=== PATIENT | female | born 1935 | race Caucasian/White ===

== ENCOUNTER 2022-02-06 08:53 | Inpatient (IN) | payer OTHER ==
[2022-02-06 09:48] LABS: #Monocytes 0.5 10x3/uL (0.0-1.1); #Neutrophils 8.6 10x3/uL (1.5-8.4); %Basophils 0.3 % (0.0-2.0); %Eosinophils 0.1 % (0.0-6.0); %Lymphocytes 6.4 % (18.0-47.0); %Monocytes 4.8 % (0.0-10.0); Hemoglobin 11.1 g/dL (12.0-15.5); Mean Corpuscular HGB CONC 32.6 g/dL (32.0-36.0); Mean Corpuscular Hemoglobin 29.1 pg (27.0-33.0); Mean Corpuscular Volume 89.2 fl (81.6-98.3); Mean Platelet Volume 11.1 fl (7.4-10.4); Platelet Count 266 10x3/uL (150-450); RBC Distribution Width 14.9 % (11.5-14.5); Red Blood Cell (RBC) Count 3.81 10x6/uL (3.90-5.03); White Blood Cell (WBC) Count 9.8 10x3/uL (3.5-10.5)
[2022-02-06] MEDS ORDERED: Aspirin Chewable 81 MG TAB ONE (09:59)
[2022-02-06] MEDS ORDERED: Morphine 4 MG/ML VIAL ONE (10:00)
[2022-02-06 10:01] LABS: PTT 23.2 sec (22.0-33.0); Prothrombin Time 10.5 sec (9.5-12.1)
[2022-02-06] MEDS ORDERED: Ondansetron PF 4 MG/2 ML Vial ONE (10:01)
[2022-02-06 10:05] LABS: ALT (SGPT) 169 U/L (8-55); AST (SGOT) 226 U/L (5-34); Albumin 4.1 g/dL (3.4-4.8); Alkaline Phosphatase 292 U/L (40-110); Anion Gap 17 mmol/L (10-20); BUN (Urea Nitrogen) 27 mg/dL (9.8-20.1); Bilirubin, Total 2.3 mg/dL (0.2-1.2); Calc. Creatinine Clearance 0 mL/min (70-130); Calcium 9.6 mg/dL (7.8-10.44); Carbon Dioxide 22 mmol/L (23-31); Chloride 103 mmol/L (98-107); Estimated GFR 33; Globulin 3.1 g/dL (2.4-3.5); Glucose 122 mg/dL (83-110); Lipase 14 U/L (8-78); Potassium 4.5 mmol/L (3.5-5.1); Protein, Total 7.2 g/dL (5.8-8.1); Sodium 137 mmol/L (136-145)
[2022-02-06 12:49] LABS: Troponin I Less than 0.010 ng/mL (< 0.028)
[2022-02-06] MEDS ORDERED: Ondansetron ODT 4 MG TAB PO PRN (13:33)
[2022-02-06] MEDS ORDERED: Morphine 2 MG/ML VIAL SLOW IVP PRN (13:35)
[2022-02-06] MEDS ORDERED: Morphine 4 MG/ML VIAL SLOW IVP PRN (13:38)
[2022-02-06] MEDS: Sodium Chloride 0.9% 1,000 ML IV SCH (15:12)
[2022-02-06] MEDS: Ondansetron PF 4 MG/2 ML Vial IVP PRN (15:25)
[2022-02-06 15:38] VITALS: BMI 31.6
[2022-02-06] MEDS ORDERED: Piperacillin/Tazobactam 3.375 GM in Sodium Chloride 0.9% 100 ML IVPB SCH (16:00)
[2022-02-06] MEDS ORDERED: Indomethacin 50 MG SUPP PR SCH (19:30)
[2022-02-06 19:42] LABS: Troponin I Less than 0.010 ng/mL (< 0.028)
[2022-02-06] MEDS: Piperacillin/Tazobactam 3.375 GM in Sodium Chloride 0.9% 100 ML IVPB SCH (20:31)
[2022-02-06] MEDS ORDERED: Enoxaparin Sodium 80 MG/0.8 ML SYRINGE SC SCH ×2 (21:00)
[2022-02-07] MEDS: Sodium Chloride 0.9% 1,000 ML IV SCH ×2 (03:52→18:19)
[2022-02-07] MEDS: Piperacillin/Tazobactam 3.375 GM in Sodium Chloride 0.9% 100 ML IVPB SCH ×3 (03:58→21:41)
[2022-02-07 06:16] LABS: #Monocytes 1.1 10x3/uL (0.0-1.1); #Neutrophils 12.3 10x3/uL (1.5-8.4); %Basophils 0.1 % (0.0-2.0); %Eosinophils 0.1 % (0.0-6.0); %Monocytes 7.7 % (0.0-10.0); %Neutrophils 82.8 % (40.0-75.0); Hemoglobin 10.1 g/dL (12.0-15.5); Mean Corpuscular Hemoglobin 29.4 pg (27.0-33.0); Mean Corpuscular Volume 89.2 fl (81.6-98.3); Mean Platelet Volume 11.6 fl (7.4-10.4); Platelet Count 246 10x3/uL (150-450); RBC Distribution Width 15.4 % (11.5-14.5); Red Blood Cell (RBC) Count 3.43 10x6/uL (3.90-5.03); White Blood Cell (WBC) Count 14.8 10x3/uL (3.5-10.5)
[2022-02-07 06:43] LABS: ALT (SGPT) 165 U/L (8-55); AST (SGOT) 172 U/L (5-34); Albumin 3.3 g/dL (3.4-4.8); Alkaline Phosphatase 245 U/L (40-110); Anion Gap 15 mmol/L (10-20); BUN (Urea Nitrogen) 26 mg/dL (9.8-20.1); Bilirubin, Total 5.9 mg/dL (0.2-1.2); Calc. Creatinine Clearance 32 mL/min (70-130); Calcium 8.9 mg/dL (7.8-10.44); Carbon Dioxide 22 mmol/L (23-31); Chloride 106 mmol/L (98-107); Estimated GFR 31; Glucose 99 mg/dL (83-110); Potassium 4.4 mmol/L (3.5-5.1); Protein, Total 6.3 g/dL (5.8-8.1); Sodium 139 mmol/L (136-145)
[2022-02-07] MEDS ORDERED: Iopamidol 15 ML ONE (15:16)
[2022-02-07] MEDS ORDERED: Indomethacin 50 MG SUPP ONE (15:17)
[2022-02-07] MEDS ORDERED: SUGAMMADEX SODIUM 200 MG/2 ML VIAL ONE (15:39)
[2022-02-07] MEDS ORDERED: Dexamethasone 4 mg/ml Vial ONE (16:38)
[2022-02-07] MEDS ORDERED: Ondansetron PF 4 MG/2 ML Vial ONE (16:38)
[2022-02-07] MEDS ORDERED: Fentanyl 100 MCG/2 ML VIAL ONE (17:06)
[2022-02-08] MEDS: Piperacillin/Tazobactam 3.375 GM in Sodium Chloride 0.9% 100 ML IVPB SCH ×3 (04:07→21:06)
[2022-02-08] MEDS: Sodium Chloride 0.9% 1,000 ML IV SCH ×2 (05:45→23:09)
[2022-02-08 05:52] LABS: Hemoglobin 9.8 g/dL (12.0-15.5); Mean Corpuscular HGB CONC 32.9 g/dL (32.0-36.0); Mean Corpuscular Hemoglobin 29.1 pg (27.0-33.0); Mean Corpuscular Volume 88.4 fl (81.6-98.3); Mean Platelet Volume 11.1 fl (7.4-10.4); Platelet Count 199 10x3/uL (150-450); RBC Distribution Width 15.3 % (11.5-14.5); Red Blood Cell (RBC) Count 3.37 10x6/uL (3.90-5.03); White Blood Cell (WBC) Count 8.6 10x3/uL (3.5-10.5)
[2022-02-08 06:04] LABS: ALT (SGPT) 106 U/L (8-55); AST (SGOT) 61 U/L (5-34); Albumin 2.9 g/dL (3.4-4.8); Alkaline Phosphatase 202 U/L (40-110); Anion Gap 14 mmol/L (10-20); BUN (Urea Nitrogen) 24 mg/dL (9.8-20.1); Bilirubin, Total 2.2 mg/dL (0.2-1.2); Calc. Creatinine Clearance 41 mL/min (70-130); Calcium 8.5 mg/dL (7.8-10.44); Carbon Dioxide 21 mmol/L (23-31); Chloride 109 mmol/L (98-107); Estimated GFR 41; Globulin 2.4 g/dL (2.4-3.5); Glucose 125 mg/dL (83-110); Potassium 4.4 mmol/L (3.5-5.1); Protein, Total 5.3 g/dL (5.8-8.1); Sodium 140 mmol/L (136-145)
[2022-02-08 06:26] LABS: Platelet Morphology Comment Appears Adequate
[2022-02-08 06:32] LABS: Band 1 % (5-11); Lymphocytes 7 % (21-51); Monocytes 2 % (0-10)
[2022-02-08 06:33] LABS: MDiff Complete? YES; Neutrophil 90 % (42-75)
[2022-02-08 06:34] LABS: Anisocytosis SLIGHT = 6-15 cells (100X) (0-5/hpf); Hypochromia SLIGHT = 6-15 cells (100X) (0-5/hpf)
[2022-02-08] MEDS ORDERED: Iopamidol 15 ML ONE (09:09)
[2022-02-08] MEDS ORDERED: Bupivacaine PF 0.5% 30 ML VIAL ONE (09:09)
[2022-02-08] MEDS ORDERED: EPINEPHrine 1 MG/ML AMP ONE (09:09)
[2022-02-08] MEDS ORDERED: Fentanyl 100 MCG/2 ML VIAL ONE (09:20)
[2022-02-08] MEDS ORDERED: Rocuronium Bromide 10 MG/ML (10ML VIAL) ONE (09:20)
[2022-02-08] MEDS ORDERED: Ondansetron PF 4 MG/2 ML Vial ONE ×2 (09:20→11:13)
[2022-02-08] MEDS ORDERED: Dexamethasone 4 mg/ml Vial ONE (09:20)
[2022-02-08] MEDS ORDERED: PROPOFOL 20 ML ONE (09:20)
[2022-02-08] MEDS ORDERED: Esmolol 100 MG/10 ML VIAL ONE (10:24)
[2022-02-08] MEDS ORDERED: Labetalol HCl 100 MG/20 ML VIAL ONE (10:26)
[2022-02-08] MEDS ORDERED: SUGAMMADEX SODIUM 200 MG/2 ML VIAL ONE (10:27)
[2022-02-08] MEDS ORDERED: HYDROmorphone 0.5 MG/0.5 ML SYRINGE ONE (10:28)
[2022-02-08] MEDS ORDERED: Promethazine HCl 25 MG/ML VIAL ONE (11:52)
[2022-02-08] MEDS: HYDROcodone/Acetaminophen 5/325 mg Tablet PO PRN ×2 (12:52→17:58)
[2022-02-09] MEDS: HYDROcodone/Acetaminophen 5/325 mg Tablet PO PRN ×2 (00:50→13:48)
[2022-02-09] MEDS: Piperacillin/Tazobactam 3.375 GM in Sodium Chloride 0.9% 100 ML IVPB SCH ×3 (03:56→21:07)
[2022-02-09 05:13] LABS: #Monocytes 0.6 10x3/uL (0.0-1.1); #Neutrophils 10.4 10x3/uL (1.5-8.4); %Basophils 0.1 % (0.0-2.0); %Lymphocytes 7.4 % (18.0-47.0); %Neutrophils 86.8 % (40.0-75.0); Hemoglobin 9.7 g/dL (12.0-15.5); Mean Corpuscular HGB CONC 32.8 g/dL (32.0-36.0); Mean Corpuscular Hemoglobin 29.2 pg (27.0-33.0); Mean Corpuscular Volume 89.2 fl (81.6-98.3); Mean Platelet Volume 11.4 fl (7.4-10.4); Platelet Count 234 10x3/uL (150-450); RBC Distribution Width 15.6 % (11.5-14.5); Red Blood Cell (RBC) Count 3.32 10x6/uL (3.90-5.03)
[2022-02-09 05:32] LABS: ALT (SGPT) 76 U/L (8-55); AST (SGOT) 37 U/L (5-34); Alkaline Phosphatase 174 U/L (40-110); Anion Gap 12 mmol/L (10-20); BUN (Urea Nitrogen) 29 mg/dL (9.8-20.1); Bilirubin, Total 1.1 mg/dL (0.2-1.2); Calc. Creatinine Clearance 39 mL/min (70-130); Calcium 8.7 mg/dL (7.8-10.44); Carbon Dioxide 21 mmol/L (23-31); Chloride 111 mmol/L (98-107); Estimated GFR 40; Globulin 2.9 g/dL (2.4-3.5); Glucose 119 mg/dL (83-110); Potassium 4.4 mmol/L (3.5-5.1); Protein, Total 5.9 g/dL (5.8-8.1); Sodium 140 mmol/L (136-145)
[2022-02-09] MEDS: Sodium Chloride 0.9% 1,000 ML IV SCH ×2 (08:48→18:45)
[2022-02-09] MEDS: Acetaminophen 325 MG TAB PO PRN (21:08)
[2022-02-10] MEDS ORDERED: Amlodipine 5 MG TAB PO SCH ×2 (02:00→05:30)
[2022-02-10] MEDS ORDERED: Nitroglycerin 2% Ointment 1 INCH/1 GM Packet TOP SCH (02:00)
[2022-02-10] MEDS: Piperacillin/Tazobactam 3.375 GM in Sodium Chloride 0.9% 100 ML IVPB SCH ×3 (04:35→20:25)
[2022-02-10 04:49] LABS: #Monocytes 0.8 10x3/uL (0.0-1.1); #Neutrophils 5.7 10x3/uL (1.5-8.4); %Basophils 0.1 % (0.0-2.0); %Eosinophils 0.2 % (0.0-6.0); %Lymphocytes 20.3 % (18.0-47.0); %Monocytes 9.1 % (0.0-10.0); %Neutrophils 69.8 % (40.0-75.0); Hemoglobin 9.6 g/dL (12.0-15.5); Mean Corpuscular HGB CONC 33.2 g/dL (32.0-36.0); Mean Corpuscular Hemoglobin 29.7 pg (27.0-33.0); Mean Corpuscular Volume 89.5 fl (81.6-98.3); Mean Platelet Volume 10.5 fl (7.4-10.4); Platelet Count 250 10x3/uL (150-450); RBC Distribution Width 15.9 % (11.5-14.5); Red Blood Cell (RBC) Count 3.23 10x6/uL (3.90-5.03); White Blood Cell (WBC) Count 8.2 10x3/uL (3.5-10.5)
[2022-02-10 05:09] LABS: ALT (SGPT) 56 U/L (8-55); AST (SGOT) 26 U/L (5-34); Alkaline Phosphatase 148 U/L (40-110); Anion Gap 14 mmol/L (10-20); BUN (Urea Nitrogen) 28 mg/dL (9.8-20.1); Bilirubin, Total 1.1 mg/dL (0.2-1.2); Calc. Creatinine Clearance 43 mL/min (70-130); Calcium 8.7 mg/dL (7.8-10.44); Carbon Dioxide 18 mmol/L (23-31); Chloride 113 mmol/L (98-107); Estimated GFR 44; Globulin 2.9 g/dL (2.4-3.5); Glucose 86 mg/dL (83-110); Potassium 3.9 mmol/L (3.5-5.1); Protein, Total 5.9 g/dL (5.8-8.1); Sodium 141 mmol/L (136-145)
[2022-02-10] MEDS ORDERED: Labetalol HCl 100 MG/20 ML VIAL SLOW IVP PRN (07:59)
[2022-02-10] MEDS: Ondansetron PF 4 MG/2 ML Vial IVP PRN (08:26)
[2022-02-10] MEDS: Acetaminophen 325 MG TAB PO PRN ×2 (08:26→17:02)
[2022-02-10] MEDS ORDERED: Lisinopril 20 MG TAB PO SCH (09:00)
[2022-02-10] MEDS ORDERED: Amlodipine 10 MG TAB PO SCH (10:00)
[2022-02-10] MEDS: Flecainide 50 MG TAB PO SCH (20:28)
[2022-02-10] MEDS: Lisinopril 20 MG TAB PO SCH (20:29)
[2022-02-10] MEDS ORDERED: Apixaban 5 MG TAB PO SCH (21:00)
[2022-02-11] MEDS: Acetaminophen 325 MG TAB PO PRN ×2 (00:52→08:40)
[2022-02-11] MEDS: Piperacillin/Tazobactam 3.375 GM in Sodium Chloride 0.9% 100 ML IVPB SCH ×2 (04:15→13:14)
[2022-02-11 05:53] LABS: ALT (SGPT) 47 U/L (8-55); AST (SGOT) 23 U/L (5-34); Albumin 3.3 g/dL (3.4-4.8); Alkaline Phosphatase 143 U/L (40-110); Anion Gap 12 mmol/L (10-20); BUN (Urea Nitrogen) 20 mg/dL (9.8-20.1); Bilirubin, Total 1.1 mg/dL (0.2-1.2); Calc. Creatinine Clearance 44 mL/min (70-130); Carbon Dioxide 24 mmol/L (23-31); Chloride 107 mmol/L (98-107); Estimated GFR 45; Globulin 3.1 g/dL (2.4-3.5); Glucose 81 mg/dL (83-110); Potassium 3.5 mmol/L (3.5-5.1); Protein, Total 6.4 g/dL (5.8-8.1); Sodium 139 mmol/L (136-145)
[2022-02-11 06:02] LABS: #Eosinphils 0.1 10x3/uL (0.0-0.5); #Monocytes 0.7 10x3/uL (0.0-1.1); #Neutrophils 3.5 10x3/uL (1.5-8.4); %Basophils 0.5 % (0.0-2.0); %Eosinophils 2.2 % (0.0-6.0); %Lymphocytes 25.9 % (18.0-47.0); %Monocytes 11.5 % (0.0-10.0); %Neutrophils 59.1 % (40.0-75.0); Hemoglobin 10.3 g/dL (12.0-15.5); Mean Corpuscular HGB CONC 32.6 g/dL (32.0-36.0); Mean Corpuscular Hemoglobin 29.3 pg (27.0-33.0); Mean Corpuscular Volume 89.8 fl (81.6-98.3); Mean Platelet Volume 10.7 fl (7.4-10.4); Platelet Count 278 10x3/uL (150-450); RBC Distribution Width 15.7 % (11.5-14.5); Red Blood Cell (RBC) Count 3.52 10x6/uL (3.90-5.03)
[2022-02-11] MEDS: Lisinopril 20 MG TAB PO SCH (08:39)
[2022-02-11] MEDS: Flecainide 50 MG TAB PO SCH (08:39)
[2022-02-11] MEDS ORDERED: Amlodipine 10 MG TAB PO SCH (09:00)
[2022-02-11] MEDS ORDERED: Amlodipine 5 MG TAB PO SCH (09:00)
[2022-02-11] MEDS ORDERED: Spironolactone 25 MG TAB PO SCH (10:15)
[2022-02-11] MEDS ORDERED: Potassium Chloride 20 MEQ TAB PO SCH (10:15)
[2022-02-11 10:50] LABS: Magnesium 1.5 mg/dL (1.6-2.6)
[2022-02-11 11:44] VITALS: BP 155/70; TEMP 98.3
[2022-02-12] MEDS ORDERED: Spironolactone 25 MG TAB PO SCH (08:00)
== END 2022-02-11 14:03 | disposition home or self-care (01) | DRG 418 ==
LOC: CSHERS 08:53 → SUATTDRO 08:53 → CSHTELE 14:24 → INTOOBSV 14:24 → OBSVTOIN 02-08 13:33
PROVIDERS: ADMIT Internal Medicine; ATTEND Family Medicine
PROC: 0FC98ZZ Extirpation of Matter from Common Bile Duct, Via Natural or Artificial Opening Endoscopic (ICD-10-PCS; 2022-02-07)
PROC: BF101ZZ Fluoroscopy of Bile Ducts using Low Osmolar Contrast (ICD-10-PCS; 2022-02-07)
PROC: 0FT44ZZ Resection of Gallbladder, Percutaneous Endoscopic Approach (ICD-10-PCS; principal; 2022-02-08)
PROC: BF151ZZ Fluoroscopy of Liver using Low Osmolar Contrast (ICD-10-PCS; 2022-02-08)
DX: K80.30 Calculus of bile duct with cholangitis, unspecified, without obstruction (principal); I48.20 Chronic atrial fibrillation, unspecified; N17.9 Acute kidney failure, unspecified; E78.5 Hyperlipidemia, unspecified; I25.10 Atherosclerotic heart disease of native coronary artery without angina pectoris; M19.90 Unspecified osteoarthritis, unspecified site; N18.9 Chronic kidney disease, unspecified; I44.0 Atrioventricular block, first degree; I12.9 Hypertensive chronic kidney disease with stage 1 through stage 4 chronic kidney disease, or unspecified chronic kidney disease; G47.33 Obstructive sleep apnea (adult) (pediatric); E78.2 Mixed hyperlipidemia; E55.9 Vitamin D deficiency, unspecified; I34.0 Nonrheumatic mitral (valve) insufficiency; Z20.822 Contact with and (suspected) exposure to COVID-19; Z87.891 Personal history of nicotine dependence; Z88.1 Allergy status to other antibiotic agents; Z79.01 Long term (current) use of anticoagulants; Z95.5 Presence of coronary angioplasty implant and graft; Z98.890 Other specified postprocedural states; Z90.710 Acquired absence of both cervix and uterus; Z79.899 Other long term (current) drug therapy; Z79.82 Long term (current) use of aspirin
CPT/HCPCS: 36415; 47532; 71045; 74330; 76705; 80053; 83690; 83735; 83880; 84484; 85025; 85610; 85730; 88304; 93005; 93010; 94760; 96361; 96374; 96375; 96376; C1713; G0378; J0171; J1100; J1170; J1610; J2270; J2405; J2543; J2550; J2704; J3010; J3490; J7050; Q9967; S0020; U0003; U0005

== ENCOUNTER 2023-05-31 10:39 | Outpatient (CLI) | payer OTHER ==
[2023-05-31 13:22] LABS: PTT 28.5 sec (22.0-33.0); Prothrombin Time 11.2 sec (9.5-12.1)
== END 2023-05-31 10:40 | disposition home or self-care (01) ==
LOC: CSHLAB 10:39
PROVIDERS: ATTEND Specialist
DX: Z01.812 Encounter for preprocedural laboratory examination (principal); I34.0 Nonrheumatic mitral (valve) insufficiency; I38 Endocarditis, valve unspecified
CPT/HCPCS: 85610; 85730

== ENCOUNTER → 2023-06-02 | Day surgery (SDC) | payer OTHER ==
[~2023-06-02] MED LIST: Atropine Sulfate 0.4 mg/1 ml Vial ONE; Lidocaine 1% PF 5 ML VIAL ONE; PROPOFOL 40 ML ONE
[2023-06-02 10:29] VITALS: BP 155/69; TEMP 97.6
== END ==
LOC: CSHSDC 09:26
PROVIDERS: ATTEND Specialist
PROC: B246ZZ4 Ultrasonography of Right and Left Heart, Transesophageal (ICD-10-PCS; principal; 2023-06-02)
DX: I34.0 Nonrheumatic mitral (valve) insufficiency (principal); Z88.1 Allergy status to other antibiotic agents; Z88.5 Allergy status to narcotic agent
CPT/HCPCS: 93312; J0461; J2704

== ENCOUNTER 2024-11-25 09:58 | Outpatient (CLI) | payer MEDICARE | END 2024-11-25 09:59 | disposition home or self-care (01) | LOC: CSHMAMMO 09:58 | PROVIDERS: ATTEND Family Medicine | DX: N63.10 Unspecified lump in the right breast, unspecified quadrant (principal) | CPT/HCPCS: 77066; G0279 ==